=== PATIENT | male | born 1960 ===

== ENCOUNTER 2021-03-06 07:45 | Inpatient (IN) | payer OTHER ==
[~2021-03-06] VITALS: Ht 165.1 cm; Wt 97.5 kg
[2021-03-06] MEDS ORDERED: SYNTHROID50 MCG PO (08:23)
[2021-03-06] MEDS ORDERED: VALSARTAN160 MG PO (08:23)
[2021-03-06] MEDS ORDERED: ADULT LOW DOSE81 M1 PO (08:23)
[2021-03-06] MEDS ORDERED: PRAVASTATIN SOD20 MG PO (08:24)
[2021-03-06] MEDS ORDERED: PEPCID AC20 MG PO (08:24)
[2021-03-11] MEDS ORDERED: INTESTINEX680 M1 PO (11:44)
[2021-03-11] MEDS ORDERED: PERCOCET 5-3251 EACH PO (11:44)
[2021-03-11] MEDS ORDERED: LEVSIN/SL0.125 MG SL (11:45)
== END 2021-03-11 13:02 | disposition home or self-care (01) | DRG 331 ==
LOC: ADM 07:45 → EDSTATUS 07:45 → ADM 09:45 → O/R 03-08 05:46 → SURH 03-08 05:46 → SURG 03-08 10:13 → SURH 03-08 10:49
PROVIDERS: ADMIT Surgery; ATTEND Surgery
PROC: 0DTN4ZZ Resection of Sigmoid Colon, Percutaneous Endoscopic Approach (ICD-10-PCS; 2021-03-08)
PROC: 3E0F7SF Introduction of Other Gas into Respiratory Tract, Via Natural or Artificial Opening (ICD-10-PCS; 2021-03-08)
PROC: 4A12X4Z Monitoring of Cardiac Electrical Activity, External Approach (ICD-10-PCS; 2021-03-08)
PROC: 0DTP4ZZ Resection of Rectum, Percutaneous Endoscopic Approach (ICD-10-PCS; principal; 2021-03-08 08:30)
DX: K57.20 Diverticulitis of large intestine with perforation and abscess without bleeding (principal); I11.9 Hypertensive heart disease without heart failure; E03.8 Other specified hypothyroidism; E78.5 Hyperlipidemia, unspecified; G47.30 Sleep apnea, unspecified